=== PATIENT | female | born 1980 | race Hispanic/Latino ===

== ENCOUNTER 2022-09-06 00:09 | Emergency (ER) | payer SELFPAY ==
[2022-09-06] MEDS ORDERED: EPINEPHrine 1 MG/ML VIAL ONE (00:26)
[2022-09-06] MEDS ORDERED: predniSONE 20 MG TAB ONE (00:33)
[2022-09-06] MEDS ORDERED: Famotidine 20 MG TAB ONE (00:33)
[2022-09-06] MEDS ORDERED: diphenhydrAMINE 50 MG/ML VIAL ONE (00:48)
== END 2022-09-06 02:35 | disposition home or self-care (01) ==
LOC: ERS 00:09
DX: T78.40XA Allergy, unspecified, initial encounter (principal)
CPT/HCPCS: 96372; 96374; J0171; J1200; J7512